=== PATIENT | female | born 1970 | race Hispanic/Latino ===

== ENCOUNTER 2022-03-27 18:29 | Emergency (ER) | payer OTHER ==
[~2022-03-27] VITALS: Ht 162.6 cm; Wt 117.9 kg
[2022-03-27 18:49] LABS: APPEARANCE,URINE Cloudy (CLEAR); BILIRUBIN,URINE Negative (NEGATIVE); COLOR,URINE Yellow (YELLOW); GLUCOSE, URINE (UA) Negative (NEGATIVE); KETONES,URINE 15 mg/dL (NEGATIVE); LEUKOCYTE ESTERASE ,URINE Trace (NEGATIVE); NITRATE,URINE Negative (NEGATIVE); OCCULT BLOOD,URINE Negative (NEGATIVE); PROTEIN,URINE Trace mg/dL (NEGATIVE)
[2022-03-27 19:13] LABS: BACTERIA,URINE Few /HPF (None Seen); RBC,URINE 0-1 /HPF (0-1); SQUAMOUS EPITHELIAL CELL,UR Moderate /HPF (0-2)
[2022-03-27 19:14] LABS: MUCUS,URINE Rare LPF (None Seen)
[2022-03-27] MEDS ORDERED: CYCL10TA16 PO (20:44)
[2022-03-27] MEDS ORDERED: NAPR500T6 PO (20:44)
[2022-03-27 20:58] VITALS: BP 132/77
== END 2022-03-27 21:08 | disposition home or self-care (01) ==
LOC: EDH 18:29
DX: M54.50 Low back pain, unspecified (principal); Z79.899 Other long term (current) drug therapy; Z98.890 Other specified postprocedural states
CPT/HCPCS: 81001